=== PATIENT | male | born 1960 | race Caucasian/White ===

== ENCOUNTER 2017-07-28 11:41 | Inpatient (IN) | payer OTHER ==
[2017-07-28 11:46] VITALS: O2SAT 99
[2017-07-28] MEDS ORDERED: ceFAZolin 2 GM PREMIX 50 ML ONE (11:46)
[2017-07-28] MEDS ORDERED: ONDANSETRON HCL 4 MG/2 ML VIAL ONE (11:46)
[2017-07-28] MEDS ORDERED: MORPHINE SULFATE 8 MG/ML INJ ONE (11:46)
[2017-07-28 12:06] LABS: AUTOMATED NEUTROPHIL # 4.5 TH/MM3 (1.8-7.7); BASOPHIL % 0.3 % (0.0-2.0); EOSINOPHIL # 0.2 TH/MM3 (0-0.4); EOSINOPHIL % 2.5 % (0.0-4.0); HEMATOCRIT 47.7 % (39.0-51.0); HEMO FLAGS DIFF FINAL; LYMPH % 31.5 % (9.0-44.0); LYMPHOCYTE # 2.5 TH/MM3 (1.0-4.8); MEAN CELL VOLUME 86.5 FL (80.0-100.0); MEAN CORPUSCULAR HEMOGLOBIN 29.2 PG (27.0-34.0); MEAN CORPUSCULAR HGB CONC 33.8 % (32.0-36.0); MONO % 8.7 % (0.0-8.0); PLATELET COUNT 234 TH/MM3 (150-450); RED BLOOD COUNT 5.51 MIL/MM3 (4.50-5.90); RED CELL DISTRIBUTION WIDTH 13.5 % (11.6-17.2); WHITE BLOOD COUNT 7.9 TH/MM3 (4.0-11.0)
[2017-07-28 12:10] LABS: I-STAT POTASSIUM 3.9 MMOL/L (3.5-4.9)
[2017-07-28] MEDS ORDERED: IOHEXOL 350 MG/ML 10 ML VIAL (for RAD DIAG) IV PUSH ONE (12:11)
[2017-07-28 12:12] LABS: APTT (PATIENT) 23.5 SEC (24.3-30.1); INTERNATIONAL NORMALIZED RATIO 1.1 RATIO; PROTHROMBIN TIME - PATIENT 11.7 SEC (9.8-11.6)
--- NOTE | 2017-07-28 12:12 | RADRPT ---
EXAM DATE/TIME: 07/28/2017 11:36 [facility] COMPARISON: No previous studies available for comparison. INDICATIONS : Trauma alert. Chest pain. MEDICAL HISTORY : None. SURGICAL HISTORY : None. ENCOUNTER: Initial ACUITY: 1 day PAIN SCORE: Non-responsive. LOCATION: chest FINDINGS: Portable AP view of the chest demonstrates cardiac silhouette size that is at the upper limits for no rmal. No effusion, consolidation, or pneumothorax is visualized. The bones and soft tissues demonstra te no acute abnormality. CONCLUSION: Cardiac silhouette size is at the upper limits for normal. Otherwise, no acute finding is visualized. Alek Glass MD on July 28, 2017 at 12:09 Board Certified Radiologist. This report was verified electronically.
--- NOTE | 2017-07-28 12:12 | RADRPT ---
EXAM DATE/TIME: 07/28/2017 11:36 [facility] COMPARISON: No previous studies available for comparison. INDICATIONS : Trauma alert. MEDICAL HISTORY : None. SURGICAL HISTORY : None. ENCOUNTER: Initial ACUITY: 1 day PAIN SCORE: Non-responsive. LOCATION: Pelvis FINDINGS: Single AP view of the pelvis demonstrates no fracture or dislocation. Mineralization is within normal limits. There is no significant arthropathy. No soft tissue abnormality or radiopaque foreign body i s identified. 3 coins overlie the left proximal femur. CONCLUSION: No acute abnormality is identified. Alek Glass MD on July 28, 2017 at 12:10 Board Certified Radiologist. This report was verified electronically.
--- NOTE | 2017-07-28 12:15 | PD ---
HPI Chief Complaint: fell off a roof Time Seen by Provider: 11:43 Travel History International Travel<30 days: No Contact w/Intl Traveler<30days: No History of Present Illness HPI Patient is a 57-year-old male who presents to emergency room as a trauma alert. Patient reports that he was working on a roof today, reports that he took a step and did not notice the roof was unstable, reports that he fell 10-15 ft off the house and landed head first into a pile of wood. Patient reports that he is not on any anticoagulants. Patient denies any loss of consciousness. Patient was able to walk to the firehouse to obtain help. he reports that he has remote history of hypertension, he does not take any medications for hypertension. Patient with only complaint of headache as well as left-sided rib pain with associated shortness of breath PFSH Past Medical History Hypertension: Yes Past Surgical History Surgical History: No Previous Surgery Social History Alcohol Use: No Tobacco Use: No Substance Use: No Allergies-Medications (Allergen,Severity, Reaction): Coded Allergies: No Known Allergies (Unverified , 07/28/17) Reported Meds & Prescriptions Reported Meds & Active Scripts Active Percocet (Oxycodone-Acetaminophen) 5-325 mg Tab 1 Tab PO Q4H PRN Review of Systems General / Constitutional: No: Fever Eyes: No: Visual changes HENT: Positive: Headaches Cardiovascular: Positive: Chest Pain or Discomfort Respiratory: Positive: Shortness of Breath Gastrointestinal: No: Abdominal Pain Genitourinary: No: Dysuria Musculoskeletal: No: Pain Skin: No Rash Neurologic: No: Weakness Psychiatric: No: Depression Endocrine: No: Polydipsia Hematologic/Lymphatic: No: Easy Bruising Physical Exam Narrative GENERAL: moderate distress SKIN: Focused skin assessment warm/dry. Patient with skin avulsion/laceration to forehead HEAD: Atraumatic. Normocephalic. EYES: Pupils equal and round. No scleral icterus. No injection or drainage. ENT: No nasal bleeding or discharge. Mucous membranes pink and moist. NECK: Trachea midline. No JVD. CARDIOVASCULAR: Regular rate and rhythm. No murmur appreciated. RESPIRATORY: No accessory muscle use. Clear to auscultation. Breath sounds equal bilaterally. Patient with left sided rib pain GASTROINTESTINAL: Abdomen soft, non-tender, nondistended. Hepatic and splenic margins not palpable. MUSCULOSKELETAL: No obvious deformities. No clubbing. No cyanosis. No edema. NEUROLOGICAL: Awake and alert. No obvious cranial nerve deficits. Motor grossly within normal limits. Normal speech. PSYCHIATRIC: Appropriate mood and affect; insight and judgment normal. Data Data Last Documented VS Vital Signs Date Time Temp Pulse Resp B/P (MAP) Pulse Ox O2 Delivery O2 Flow Rate FiO2 07/28/17 12:25 60 18 156/86 (109) 99 Room Air Orders Orders Ed Poc Ultrasound (07/28/17 ) Morphine Inj (Morphine Inj) (07/28/17 11:46) Cefazolin 2 Gm Premix (Ancef 2 Gm Premix (07/28/17 11:46) Ondansetron Inj (Zofran Inj) (07/28/17 11:46) I-Stat Profile (07/28/17 11:44) I-Stat Creatinine (07/28/17 11:44) Complete Blood Count With Diff (07/28/17 11:44) Prothrombin Time / Inr (Pt) (07/28/17 11:44) Act Partial Throm Time (Ptt) (07/28/17 11:44) Type And Screen (07/28/17 11:44) Chest, Single Ap (07/28/17 11:44) Pelvis, Ap Only (Routine) (07/28/17 11:44) Ct Brain W/O Iv Contrast(Rout) (07/28/17 11:44) Ct Cerv Spine W/O Contrast (07/28/17 11:44) Ct Thorax/ Chest W Iv Contrast (07/28/17 11:44) Iv Access Insert/Monitor (07/28/17 11:44) Ecg Monitoring (07/28/17 11:44) Oximetry (07/28/17 11:44) Oxygen Administration (07/28/17 11:44) Iohexol 350 Inj (Omnipaque 350 Inj) (07/28/17 12:11) Wound Care (07/28/17 12:30) Lidocai-Epi 1%-1:100,000 Inj (Xylocaine- (07/28/17 12:30) Labs Laboratory Tests Test 07/28/17 11:45 White Blood Count 7.9 TH/MM3 Red Blood Count 5.51 MIL/MM3 Hemoglobin 16.1 GM/DL Bedside Hemoglobin 16.0 G/DL Hematocrit 47.7 % Bedside Hematocrit 47.0 % Mean Corpuscular Volume 86.5 FL Mean Corpuscular Hemoglobin 29.2 PG Mean Corpuscular Hemoglobin Concent 33.8 % Red Cell Distribution Width 13.5 % Platelet Count 234 TH/MM3 Mean Platelet Volume 7.2 FL Neutrophils (%) (Auto) 57.0 % Lymphocytes (%) (Auto) 31.5 % Monocytes (%) (Auto) 8.7 % Eosinophils (%) (Auto) 2.5 % Basophils (%) (Auto) 0.3 % Neutrophils # (Auto) 4.5 TH/MM3 Lymphocytes # (Auto) 2.5 TH/MM3 Monocytes # (Auto) 0.7 TH/MM3 Eosinophils # (Auto) 0.2 TH/MM3 Basophils # (Auto) 0.0 TH/MM3 CBC Comment DIFF FINAL Differential Comment Prothrombin Time 11.7 SEC Prothromb Time International Ratio 1.1 RATIO Activated Partial Thromboplast Time 23.5 SEC Bedside Sodium 142 MMOL/L Bedside Potassium 3.9 MMOL/L Bedside Chloride 102 MMOL/L Bedside Blood Urea Nitrogen 13 MG/DL Bedside Creatinine 0.9 MG/DL Bedside Glucose 105 MG/DL [facility] Medical Screen Exam Complete: Yes Emergency Medical Condition: Yes Interpretation(s) Laboratory Tests Test 07/28/17 11:45 White Blood Count 7.9 TH/MM3 (4.0-11.0) Red Blood Count 5.51 MIL/MM3 (4.50-5.90) Hemoglobin 16.1 GM/DL (13.0-17.0) Bedside Hemoglobin 16.0 G/DL (12.0-17.0) Hematocrit 47.7 % (39.0-51.0) Bedside Hematocrit 47.0 % (38.0-51.0) Mean Corpuscular Volume 86.5 FL (80.0-100.0) Mean Corpuscular Hemoglobin 29.2 PG (27.0-34.0) Mean Corpuscular Hemoglobin Concent 33.8 % (32.0-36.0) Red Cell Distribution Width 13.5 % (11.6-17.2) Platelet Count 234 TH/MM3 (150-450) Mean Platelet Volume 7.2 FL (7.0-11.0) Neutrophils (%) (Auto) 57.0 % (16.0-70.0) Lymphocytes (%) (Auto) 31.5 % (9.0-44.0) Monocytes (%) (Auto) 8.7 % (0.0-8.0) Eosinophils (%) (Auto) 2.5 % (0.0-4.0) Basophils (%) (Auto) 0.3 % (0.0-2.0) Neutrophils # (Auto) 4.5 TH/MM3 (1.8-7.7) Lymphocytes # (Auto) 2.5 TH/MM3 (1.0-4.8) Monocytes # (Auto) 0.7 TH/MM3 (0-0.9) Eosinophils # (Auto) 0.2 TH/MM3 (0-0.4) Basophils # (Auto) 0.0 TH/MM3 (0-0.2) CBC Comment DIFF FINAL Differential Comment Prothrombin Time 11.7 SEC (9.8-11.6) Prothromb Time International Ratio 1.1 RATIO Activated Partial Thromboplast Time 23.5 SEC (24.3-30.1) Bedside Sodium 142 MMOL/L (138-146) Bedside Potassium 3.9 MMOL/L (3.5-4.9) Bedside Chloride 102 MMOL/L (98-109) Bedside Blood Urea Nitrogen 13 MG/DL (8-26) Bedside Creatinine 0.9 MG/DL (0.8-1.3) Bedside Glucose 105 MG/DL (60-95) Last Impressions Pelvis X-Ray 07/28/17 1144 Signed Impressions: Service Date/Time: Friday, July 28, 2017 11:36 - CONCLUSION: No acute abnormality is identified. Alek Glass MD Head CT 07/28/17 1144 Signed Impressions: Service Date/Time: Friday, July 28, 2017 11:52 - CONCLUSION: 1. No acute intracranial abnormality is identified. 2. Right frontal scalp soft tissue swelling at the high convexity with subcutaneous air suggesting laceration. Alek Glass MD Chest X-Ray 07/28/17 1144 Signed Impressions: Service Date/Time: Friday, July 28, 2017 11:36 - CONCLUSION: Cardiac silhouette size is at the upper limits for normal. Otherwise, no acute finding is visualized. Alek Glass MD Chest CT 07/28/17 1144 Signed Impressions: Service Date/Time: Friday, July 28, 2017 12:03 - CONCLUSION: 1. There are fractures involving the left fourth, fifth, and seventh ribs. There is no pneumothorax or pulmonary contusion. No other acute finding is identified within the chest. 2. Coronary artery calcification. Alek Glass MD Cervical Spine CT 07/28/17 1144 Signed Impressions: Service Date/Time: Friday, July 28, 2017 11:55 - CONCLUSION: Degenerative disc disease at C3-C4 through C6-C7. However, no acute cervical spine abnormality is identified. Alek Glass MD Differential Diagnosis Differential includes ICH, cervical spine fracture, pneumothorax, rib fractures Narrative Course Patient is a 57-year-old male who presents to emergency room as a trauma alert. He only fell off a roof that was 10-15 feet in the air landing onto his left chest and head. NO LOC. Patient currently is not on any anticoagulants at this time. Please see trauma records for full trauma workup. Vital Signs Date Time Temp Pulse Resp B/P (MAP) Pulse Ox O2 Delivery O2 Flow Rate FiO2 07/28/17 12:25 60 18 156/86 (109) 99 Room Air Last Impressions Pelvis X-Ray 07/28/171143 Signed Impressions: Service Date/Time: Friday, July 28, 2017 11:36 - CONCLUSION: No acute abnormality is identified. Alek Glass MD Head CT 07/28/17 1144 Signed Impressions: Service Date/Time: Friday, July 28, 2017 11:52 - CONCLUSION: 1. No acute intracranial abnormality is identified. 2. Right frontal scalp soft tissue swelling at the high convexity with subcutaneous air suggesting laceration. Alek Glass MD Chest X-Ray 07/28/17 1144 Signed Impressions: Service Date/Time: Friday, July 28, 2017 11:36 - CONCLUSION: Cardiac silhouette size is at the upper limits for normal. Otherwise, no acute finding is visualized. Alek Glass MD Chest CT 07/28/17 1144 Signed Impressions: Service Date/Time: Friday, July 28, 2017 12:03 - CONCLUSION: 1. There are fractures involving the left fourth, fifth, and seventh ribs. There is no pneumothorax or pulmonary contusion. No other acute finding is identified within the chest. 2. Coronary artery calcification. Alek Glass MD Cervical Spine CT 07/28/17 1144 Signed Impressions: Service Date/Time: Friday, July 28, 2017 11:55 - CONCLUSION: Degenerative disc disease at C3-C4 through C6-C7. However, no acute cervical spine abnormality is identified. Alek Glass MD Patient acute fracture so left fourth fifth, sixth ribs. Patient offered admission to the hospital for observation, patient refuses admission as he reports that he has too much to do at work. Dr. Soto did see patient during trauma alert, patient can follow up with Dr. Soto in the office. Signs and symptoms of when to return to the ER was reviewed with patient in detail. Patient was given a copy of all his studies at discharge Patient unable to ambulate without assist at this time, patient now agreeable to observation in the hospital Diagnosis Diagnosis: Primary Impression: Ribs, multiple fractures Qualified Codes: S22.42XA - Multiple fractures of ribs, left side, initial encounter for closed fracture Additional Impressions: Trauma Facial laceration Referrals: Genet Bryant MD Patient Instructions: General Instructions, Narcotic given in the ED Additional Instructions: Please follow up with your primary care doctor as soon as possible, bring your radiology reports to your doctor's office for follow up Return to ER as needed Return to ER if symptoms worsen or progress Please follow up with Dr. Bryant in the office Suture removal in 7 days, keep area clean and dry Med/Other Pt SpecificInfo: Prescription(s) given Scripts Oxycodone-Acetaminophen (Percocet) 5-325 mg Tab 1 TAB PO Q4H Y for PAIN, #20 TAB 0 Refills Prov: Bella Velásquez DO 07/28/17 Disposition: 01 DISCHARGE HOME Condition: Stable Bella Velásquez DO Jul 28, 2017 12:15
--- NOTE | 2017-07-28 12:15 | RADRPT ---
EXAM DATE/TIME: 07/28/2017 11:52 [facility] COMPARISON: No previous studies available for comparison. INDICATIONS : Trauma alert; fall off roof. RADIATION DOSE: 69.15 CTDIvol (mGy) MEDICAL HISTORY : Non-responsive. SURGICAL HISTORY : Non-responsive. ENCOUNTER: Initial ACUITY: 1 day PAIN SCALE: 5/10 LOCATION: cranial TECHNIQUE: Multiple contiguous axial images were obtained of the head. Using automated exposure control and adj ustment of the mA and/or kV according to patient size, radiation dose was kept as low as reasonably a chievable to obtain optimal diagnostic quality images. DICOM format image data is available electro nically for review and comparison. FINDINGS: CEREBRUM: The ventricles are normal. No evidence of midline shift, mass lesion, hemorrhage or acute infarction . No extra-axial fluid collections are seen. POSTERIOR FOSSA: The cerebellum and brainstem demonstrate no acute finding. The 4th ventricle is midline. The cerebe llopontine angle is unremarkable. EXTRACRANIAL: There is right frontal scalp soft tissue swelling at the high convexity with associated subcutaneous air. SKULL: No skull fracture is visualized. There is lucency through the left lateral orbital wall but appears w ell-corticated indicating that it is not an acute fracture. CONCLUSION: 1. No acute intracranial abnormality is identified. 2. Right frontal scalp soft tissue swelling at the high convexity with subcutaneous air suggesting la ceration. Alek Glass MD on July 28, 2017 at 12:11 Board Certified Radiologist. This report was verified electronically.
--- NOTE | 2017-07-28 12:22 | RADRPT ---
EXAM DATE/TIME: 07/28/2017 11:55 [facility] COMPARISON: No previous studies available for comparison. INDICATIONS : Trauma alert; fall off roof. RADIATION DOSE: 43.61 CTDIvol (mGy) MEDICAL HISTORY : Non-responsive. SURGICAL HISTORY : Non-responsive. ENCOUNTER: Initial ACUITY: 1 day PAIN SCALE: 5/10 LOCATION: Bilateral chest TECHNIQUE: Volumetric scanning of the cervical spine was performed. Multiplanar reconstructions in the sagittal, coronal and oblique axial planes were performed. Using automated exposure control and adjustment o f the mA and/or kV according to patient size, radiation dose was kept as low as reasonably achievable to obtain optimal diagnostic quality images. DICOM format image data is available electronically f or review and comparison. FINDINGS: There is normal sagittal spine alignment of the cervical spine. No anterolisthesis or retrolisthesis is present. The atlantoaxial relationship is within normal limits. There is no prevertebral soft tiss ue swelling present. No fracture or dislocation is identified. There is degenerative disc disease at C3-C4 through C6-C7. The visualized portions of the posterior fossa, paraspinous soft tissues, and upper lung zones demons trate no acute abnormality. CONCLUSION: Degenerative disc disease at C3-C4 through C6-C7. However, no acute cervical spine abnormality is monika ntified. Alek Glass MD on July 28, 2017 at 12:15 Board Certified Radiologist. This report was verified electronically.
[2017-07-28 12:25] VITALS: BP 156/86; PULSE 60; RESP 18; O2SAT 99
--- NOTE | 2017-07-28 12:29 | RADRPT ---
EXAM DATE/TIME: 07/28/2017 12:03 [facility] COMPARISON: No previous studies available for comparison. INDICATIONS : Trauma alert; fall off roof. IV CONTRAST: 100 cc Omnipaque 350 (iohexol) IV RADIATION DOSE: 13.86 CTDIvol (mGy) MEDICAL HISTORY : Non-responsive. SURGICAL HISTORY : Non-responsive. ENCOUNTER: Initial ACUITY: 1 day PAIN SCALE: 5/10 LOCATION: Bilateral chest TECHNIQUE: Volumetric scanning of the chest was performed. Using automated exposure control and adjustment of t he mA and/or kV according to patient size, radiation dose was kept as low as reasonably achievable to obtain optimal diagnostic quality images. DICOM format image data is available electronically for review and comparison. Follow-up recommendations for detected pulmonary nodules are based at a minimum on nodule size and pa tient risk factors according to Fleischner Society Guidelines. FINDINGS: LUNGS: There is no consolidation or pneumothorax. There is no pulmonary contusion. PLEURA: There is no pleural thickening or pleural effusion. MEDIASTINUM: The heart and great vessels demonstrate no acute abnormality. Coronary artery calcification is presen t. There is no mediastinal or hilar lymphadenopathy. AXILLAE: Within normal limits. No lymphadenopathy. SKELETAL: There are minimally displaced fractures involving the left fourth, fifth, and seventh ribs. No other fracture is visualized. MISCELLANEOUS: The visualized upper abdominal organs demonstrate no acute abnormality. CONCLUSION: 1. There are fractures involving the left fourth, fifth, and seventh ribs. There is no pneumothorax o r pulmonary contusion. No other acute finding is identified within the chest. 2. Coronary artery calcification. Alek Glass MD on July 28, 2017 at 12:23 Board Certified Radiologist. This report was verified electronically.
[2017-07-28] MEDS ORDERED: LIDOCAINE 1%/EPINEPHrine 1:100,000 SOLN 20 ML VIAL INFIL ONE (12:30)
--- NOTE | 2017-07-28 12:37 | MH ---
cc: [facility] DATE OF ADMISSION: 07/28/2017 PHYSICIAN: Dr. Bryant trauma surgery REASON FOR ADMISSION His fall on top of the head. HISTORY OF PRESENT ILLNESS: This 42ish year-old male was working on the roof, fell down apparently head first did not lose consciousness was brought in as priority one trauma alert complaining of pain is right side of the head left side of the chest. The patient is awake, alert and oriented on spinal board with C-collar in place. PHYSICAL EXAMINATION: The physical examination reveals a pleasant 42ish year old male, normocephalic, trauma to the head consisting of a laceration, abrasion of the right frontal temporal area with minimal bleeding. Appearance unseen level more, pupils equally reactive. Extraocular muscles intact. No hemotympanum. No Simon's sign or raccoon's eyes. No signs of trauma to the face. NECK: The patient has a C-collar neck is examined by removing the C-collar and there is no signs of trauma to the neck. The patient is not tender. CHEST: Bilateral breath sounds. HEART: Regular rhythm. LUNGS: The patient is somewhat tender on palpation the left mid chest. Hemodynamically stable. No sign of pneumothorax or collapse or other injuries. The patient may have a fractured rib or just a bad contusion. ABDOMEN: The abdomen is soft, Active bowel sounds. No rebound or guarding. No masses. No signs of trauma to the abdomen. GENITOURINARY: Pelvis is stable. EXTREMITIES: The patient has normal, femoral, popliteal, dorsalis pedis posterior tibial pulses normal brachial radial ulnar pulses logrolling the patient reveals back to be normal. No signs of trauma to the back. NEUROLOGICALLY: The patient is stable. Glo coma scale is 15. He is awake, alert, motoric fully intact. Normal reflexes. No pathologic reflexes. IMPRESSION 42 elian -year-old male fell off the roof and sustained significant injury to soft tissues of the head. The patient will undergo a full workup and based on this the patient will be either admitted or discharge on his own. Genet MUNGUIA/christiane /11:59 AM /12:26 PM
--- NOTE | 2017-07-28 13:23 | PD ---
Physical Exam Date Seen by Provider: Jul 28, 2017 Time Seen by Provider: 13:21 Narrative Trauma alert to presents to the ED for evaluation of trauma. I was asked by my attending to repair a laceration to the forehead. Please refer to her note. Data Data Orders Orders Ed Poc Ultrasound (07/28/17 ) Morphine Inj (Morphine Inj) (07/28/17 11:46) Cefazolin 2 Gm Premix (Ancef 2 Gm Premix (07/28/17 11:46) Ondansetron Inj (Zofran Inj) (07/28/17 11:46) I-Stat Profile (07/28/17 11:44) I-Stat Creatinine (07/28/17 11:44) Complete Blood Count With Diff (07/28/17 11:44) Prothrombin Time / Inr (Pt) (07/28/17 11:44) Act Partial Throm Time (Ptt) (07/28/17 11:44) Type And Screen (07/28/17 11:44) Chest, Single Ap (07/28/17 11:44) Pelvis, Ap Only (Routine) (07/28/17 11:44) Ct Brain W/O Iv Contrast(Rout) (07/28/17 11:44) Ct Cerv Spine W/O Contrast (07/28/17 11:44) Ct Thorax/ Chest W Iv Contrast (07/28/17 11:44) Iv Access Insert/Monitor (07/28/17 11:44) Ecg Monitoring (07/28/17 11:44) Oximetry (07/28/17 11:44) Oxygen Administration (07/28/17 11:44) Iohexol 350 Inj (Omnipaque 350 Inj) (07/28/17 12:11) Wound Care (07/28/17 12:30) Lidocai-Epi 1%-1:100,000 Inj (Xylocaine- (07/28/17 12:30) Admit Order (Ed Use Only) (07/28/17 12:51) Labs Laboratory Tests Test 07/28/17 11:45 White Blood Count 7.9 TH/MM3 Red Blood Count 5.51 MIL/MM3 Hemoglobin 16.1 GM/DL Bedside Hemoglobin 16.0 G/DL Hematocrit 47.7 % Bedside Hematocrit 47.0 % Mean Corpuscular Volume 86.5 FL Mean Corpuscular Hemoglobin 29.2 PG Mean Corpuscular Hemoglobin Concent 33.8 % Red Cell Distribution Width 13.5 % Platelet Count 234 TH/MM3 Mean Platelet Volume 7.2 FL Neutrophils (%) (Auto) 57.0 % Lymphocytes (%) (Auto) 31.5 % Monocytes (%) (Auto) 8.7 % Eosinophils (%) (Auto) 2.5 % Basophils (%) (Auto) 0.3 % Neutrophils # (Auto) 4.5 TH/MM3 Lymphocytes # (Auto) 2.5 TH/MM3 Monocytes # (Auto) 0.7 TH/MM3 Eosinophils # (Auto) 0.2 TH/MM3 Basophils # (Auto) 0.0 TH/MM3 CBC Comment DIFF FINAL Differential Comment Prothrombin Time 11.7 SEC Prothromb Time International Ratio 1.1 RATIO Activated Partial Thromboplast Time 23.5 SEC Bedside Sodium 142 MMOL/L Bedside Potassium 3.9 MMOL/L Bedside Chloride 102 MMOL/L Bedside Blood Urea Nitrogen 13 MG/DL Bedside Creatinine 0.9 MG/DL Bedside Glucose 105 MG/DL [facility] Medical Record Reviewed: Yes Supervised Visit with VINAYAK: No Procedures Procedure Narrative LACERATION LOCATION: right forehead LENGTH: 7 cm with skin avulsion (of about 5 cm) NUMBER OF STITCHES/KONSTANTIN: 23 sutures REPAIR: The area of the laceration was prepped with Betadine and sterilely draped. The laceration was infiltrated with 1% Xylocaine. The wound was copiously irrigated and explored without evidence of foreign body, tendon injury or neurovascular injury. The wound was closed using 5-0 Prolene. This was a 1 layer repair. A sterile dressing was applied. The patient was advised to keep the dressing clean and dry. Patient tolerated the procedure well. Diagnosis Primary Impression: Ribs, multiple fractures Qualified Codes: S22.42XA - Multiple fractures of ribs, left side, initial encounter for closed fracture Additional Impression: Trauma Carlos Capellan Jul 28, 2017 13:23
[2017-07-28] MEDS ORDERED: PERC5TAB12 PO (13:54)
[2017-07-28] MEDS ORDERED: LORazepam 2 MG/ML VIAL IV PUSH ONE (14:00)
[2017-07-28 14:58] VITALS: BP 125/68; PULSE 60; RESP 18; O2SAT 98
[2017-07-28] MEDS ORDERED: ONDANSETRON HCL 4 MG/2 ML VIAL IV PRN ×2 (15:00→16:45)
[2017-07-28] MEDS ORDERED: MORPHINE SULFATE 4 MG/ML INJ IV PUSH ONE (15:00)
[2017-07-28] MEDS ORDERED: ACETAMINOPHEN 325 MG TAB PO PRN (15:00)
[2017-07-28] MEDS ORDERED: MORPHINE SULFATE 4 MG/ML INJ IV PUSH PRN (15:00)
[2017-07-28 15:38] VITALS: BP 125/68; PULSE 78; RESP 18; O2SAT 96
[2017-07-28] MEDS ORDERED: oxyCODONE/ACETAMINOPHEN 5 MG/325 MG TAB PO PRN (16:45)
[2017-07-28] MEDS ORDERED: RESP: ALBUTEROL 2.5 MG/IPRATROPIUM 0.5 MG NEB (PRN) INH (16:45)
[2017-07-28] MEDS ORDERED: SODIUM CHLORIDE 0.9% FLUSH 10 ML FLUSH IV FLUSH PRN (16:45)
[2017-07-28] MEDS: METHOCARBAMOL 500 MG TAB PO SCH ×2 (16:45→22:10)
[2017-07-28] MEDS ORDERED: ENALAPRILAT 1.25 MG/ML VIAL IV PRN (16:45)
[2017-07-28] MEDS ORDERED: BACITRACIN TOP OINT 15 GM TUBE TOPICAL PRN (20:00)
[2017-07-28 20:40] VITALS: BP 172/92; PULSE 86; RESP 17; TEMP 98.4; O2SAT 98
[2017-07-28] MEDS ORDERED: MAGNESIUM HYDROXIDE SUSP 30 ML CUP PO SCH (21:00)
[2017-07-28] MEDS: DOCUSATE SODIUM 50 MG/SENNA 8.6 MG TAB PO SCH (21:54)
[2017-07-28] MEDS: FAMOTIDINE 20 MG TAB PO SCH (21:54)
[2017-07-28] MEDS: RESP: ALBUTEROL 2.5 MG/IPRATROPIUM 0.5 MG NEB (SCH) INH (22:00)
[2017-07-28] MEDS: oxyCODONE/ACETAMINOPHEN 10 MG/325 MG TAB PO PRN (23:03)
[2017-07-29 00:45] VITALS: BP 167/87; PULSE 65; RESP 17; TEMP 97.5; O2SAT 96
[2017-07-29] MEDS: RESP: ALBUTEROL 2.5 MG/IPRATROPIUM 0.5 MG NEB (SCH) INH ×3 (03:52→15:45)
[2017-07-29 04:35] VITALS: BP 148/84; PULSE 60; RESP 17; TEMP 97; O2SAT 99
--- NOTE | 2017-07-29 05:29 | RADRPT ---
EXAM DATE/TIME: 07/29/2017 04:12 [facility] COMPARISON: CT THORAX W CONTRAST, July 28, 2017, 12:03. CHEST SINGLE AP, July 28, 2017, 11:36. INDICATIONS : Evaluate left side rib fractures MEDICAL HISTORY : Unobtainable SURGICAL HISTORY : Unobtainable ENCOUNTER: Subsequent ACUITY: 3 days PAIN SCORE: 7/10 LOCATION: Bilateral chest FINDINGS: No evidence of pneumothorax. Mild pleural thickening upper lateral left chest at the site of multipl e nondisplaced rib fractures. There is a new infiltrate in the lower lateral left lung causing loss of delineation of portions of the left heart border. There is also loss of delineation of portion of the medial left hemidiaphragm suggesting multifocal areas of consolidation. The right lung is clear . The heart is normal size. CONCLUSION: Interval development of patchy consolidative infiltrates in the left lower lung. Jamel Castaneda MD on July 29, 2017 at 5:24 Board Certified Radiologist. This report was verified electronically.
[2017-07-29 05:43] LABS: AUTOMATED NEUTROPHIL # 5.8 TH/MM3 (1.8-7.7); EOSINOPHIL # 0.1 TH/MM3 (0-0.4); EOSINOPHIL % 1.4 % (0.0-4.0); HEMATOCRIT 42.7 % (39.0-51.0); HEMO FLAGS DIFF FINAL; LYMPH % 21.1 % (9.0-44.0); LYMPHOCYTE # 1.8 TH/MM3 (1.0-4.8); MEAN CORPUSCULAR HEMOGLOBIN 29.3 PG (27.0-34.0); MEAN CORPUSCULAR HGB CONC 33.6 % (32.0-36.0); MONO % 9.3 % (0.0-8.0); NEUT % 68.2 % (16.0-70.0); PLATELET COUNT 175 TH/MM3 (150-450); RED BLOOD COUNT 4.91 MIL/MM3 (4.50-5.90); RED CELL DISTRIBUTION WIDTH 13.3 % (11.6-17.2); WHITE BLOOD COUNT 8.5 TH/MM3 (4.0-11.0)
[2017-07-29 05:57] LABS: ALT (GPT) 39 U/L (12-78); ANION GAP 7 MEQ/L (5-15); AST (GOT) 20 U/L (15-37); BICARBONATE 25.1 MEQ/L (21.0-32.0); BLOOD UREA NITROGEN 11 MG/DL (7-18); CHLORIDE 104 MEQ/L (98-107); GLOMERULAR FILTRATION RATE 77 ML/MIN (>89); POTASSIUM 3.8 MEQ/L (3.5-5.1); SODIUM (NA) 136 MEQ/L (136-145)
[2017-07-29 05:59] LABS: ALKALINE PHOSPHATASE 73 U/L (45-117); TOTAL BILIRUBIN ADULT 0.9 MG/DL (0.2-1.0)
[2017-07-29] MEDS: METHOCARBAMOL 500 MG TAB PO SCH (06:07)
[2017-07-29 08:00] VITALS: BP 153/97; PULSE 75; RESP 18; TEMP 99.2; O2SAT 96
[2017-07-29] MEDS: FAMOTIDINE 20 MG TAB PO SCH (08:43)
[2017-07-29] MEDS: DOCUSATE SODIUM 50 MG/SENNA 8.6 MG TAB PO SCH (08:43)
[2017-07-29] MEDS ORDERED: LIDOCAINE HCL 5% PATCH T-DERMAL SCH (09:00)
[2017-07-29 09:18] VITALS: O2SAT 97
[2017-07-29] MEDS ORDERED: SENN1TAB PO (10:32)
[2017-07-29] MEDS ORDERED: METH500T3 PO (10:32)
[2017-07-29] MEDS ORDERED: OXYC1TAB63 PO (10:32)
[2017-07-29] MEDS ORDERED: MAGN400S PO (10:32)
--- NOTE | 2017-07-29 10:43 | HHI.DS ---
Discharge Summary Admission Date Jul 28, 2017 at 14:58 Discharge Date: Jul 29, 2017 Admitting Diagnosis Trauma, multiple rib fractures (1) Trauma ICD Codes: T14.90 - Injury, unspecified Diagnosis: Principal Status: Acute (2) Facial laceration ICD Codes: S01.81XA - Laceration without foreign body of other part of head, initial encounter Diagnosis: Principal Status: Acute (3) Ribs, multiple fractures ICD Codes: S22.49XA - Multiple fractures of ribs, unspecified side, initial encounter for closed fracture Diagnosis: Principal Status: Acute Brief History Fall. CBC/BMP: 07/29/17 0502 07/29/17 0502 Significant Findings Laboratory Tests Test 07/28/17 11:45 07/29/17 05:02 Monocytes (%) (Auto) 8.7 % (0.0-8.0) 9.3 % (0.0-8.0) Prothrombin Time 11.7 SEC (9.8-11.6) Activated Partial Thromboplast Time 23.5 SEC (24.3-30.1) Bedside Glucose 105 MG/DL (60-95) Calcium Level 8.1 MG/DL (8.5-10.1) Estimat Glomerular Filtration Rate 77 ML/MIN (>89) Imaging Last Impressions Chest X-Ray 07/29/17 0600 Signed Impressions: Service Date/Time: Saturday, July 29, 2017 04:12 - CONCLUSION: Interval development of patchy consolidative infiltrates in the left lower lung. Jamel Castaneda MD Pelvis X-Ray 07/28/17 1144 Signed Impressions: Service Date/Time: Friday, July 28, 2017 11:36 - CONCLUSION: No acute abnormality is identified. Alek Glass MD Head CT 07/28/17 1144 Signed Impressions: Service Date/Time: Friday, July 28, 2017 11:52 - CONCLUSION: 1. No acute intracranial abnormality is identified. 2. Right frontal scalp soft tissue swelling at the high convexity with subcutaneous air suggesting laceration. Alek Glass MD Chest CT 07/28/17 1144 Signed Impressions: Service Date/Time: Friday, July 28, 2017 12:03 - CONCLUSION: 1. There are fractures involving the left fourth, fifth, and seventh ribs. There is no pneumothorax or pulmonary contusion. No other acute finding is identified within the chest. 2. Coronary artery calcification. Alek Glass MD Cervical Spine CT 07/28/17 1144 Signed Impressions: Service Date/Time: Friday, July 28, 2017 11:55 - CONCLUSION: Degenerative disc disease at C3-C4 through C6-C7. However, no acute cervical spine abnormality is identified. Alek Glass MD PE at Discharge GENERAL: This is a 57-year-old male lying in bed. No distress noted. Pleasant and cooperative. SKIN: Warm and dry. HEAD: Normocephalic. Right for head laceration noted with sutures in place. [employer]. EYES: PERRLA ENT: No nasal bleeding or discharge. Mucous membranes pink and moist. NECK: Trachea midline. No JVD. CARDIOVASCULAR: Regular rate and rhythm. RESPIRATORY: No accessory muscle use. Lungs are clear to auscultation. Breath sounds equal bilaterally. No distress or dyspnea. GASTROINTESTINAL: BS + x 4 quads. Abdomen soft, non-tender, nondistended. MUSCULOSKELETAL: Extremities without cyanosis, or edema. + peripheral pulses x 4 extremities. Warm with good capillary refill and sensation. MAEW. NEUROLOGICAL: Awake and alert. Normal speech and pattern. Hospital Course [place]: This is a 57-year-old male who sustained a fall. He fell approximately 10-15 feet off of the roof. He landed headfirst into a pile of wood. He was able to ambulate after the fall to the fire house for help. INJURIES: RIGHT scalp lac (23 sutures) LEFT rib fx (4,5,7) No PTX. PMHx: HTN (no meds) Procedures: Consults: Case management. Diet: Regular Pulm: IS, acapella, EZpap. Nebs. Pain: Percocet 5-10 mg q 4h. Morphine 4 mg q 4h. Robaxin 500 mg q 8h. Lidoderm patch. Activity: OOB. PT ordered. GI: Pepcid BID Bowel: Izabella-colace BID. MOM. LBM: 0 DVT: SCD's Patient wants to go home. The patient is now tolerating a po diet. Eating and drinking well. Pain is being managed well with PO pain medications, and patient is being a provided with a script for pain meds upon discharge. (NO driving while taking narcotic pain medication enforced to patient.) We have recommended to patient to continue with stool softeners while taking narcotic pain medications to prevent constipation. Pt has been participating in PT while admitted at [facility] and has been ambulating with their assistance and independently . (Patient observed ambulating unassisted in the hallway) PT needs for home. All follow up appointments have been provided and discussed with the patient. It is recommended that the patient keeps all his follow up appointments for continued recovery. Returned to PCP for suture removal to right forehead and approximately 5-7 days. Therefore, the patient is stable to be safely discharged home from a trauma surgery standpoint. Thank you for allowing us to participate in his care. We wish [place] the best in his recovery. RIGHT scalp lac (23 sutures) Wash gently with soap and water. Pat dry Leave open to air Return to PCP for suture removal in 5-7 days LEFT rib fx (4,5,7) No PTX. Aggressive pulmonary toileting O2 as needed Pain management Chest x-rays as needed H&H stable PT ordered Ambulating OOB unassisted Pt Condition on Discharge: Stable Discharge Disposition: Discharge Home Discharge Instructions DIET: Follow Instructions for: As Tolerated, No Restrictions Activities you can perform: Regular-No Restrictions Activities to Avoid: Driving for 24 hrs, Concussion Sports, Contact Sports, Lifting/Bending, Strenuous Activity Other Activity Instructions: No driving while taking narcotic pain medications Justine Estrada Jul 29, 2017 10:43
[2017-07-29] MEDS: oxyCODONE/ACETAMINOPHEN 10 MG/325 MG TAB PO PRN (11:33)
[2017-07-29 12:02] VITALS: BP 133/69; PULSE 75; RESP 18; TEMP 98.1; O2SAT 99
[2017-07-29 12:33] VITALS: RESP 18
[2017-07-29] MEDS ORDERED: REMOVE OLD LIDOCAINE PATCH T-DERMAL SCH (21:00)
== END 2017-07-29 15:46 | disposition home or self-care (01) | DRG 605 ==
LOC: NEPI 11:41 → NEDA 12:53 → UNDOADMIN 12:53 → NEDA 14:58 → EDBD 14:58 → N06A 15:56
PROVIDERS: ADMIT Surgery; ATTEND Surgery
PROC: 0HQ0XZZ Repair Scalp Skin, External Approach (ICD-10-PCS; principal; 2017-07-28)
DX: S01.01XA Laceration without foreign body of scalp, initial encounter (principal); S22.42XA Multiple fractures of ribs, left side, initial encounter for closed fracture; W13.2XXA Fall from, out of or through roof, initial encounter; Y92.008 Other place in unspecified non-institutional (private) residence as the place of occurrence of the external cause
CPT/HCPCS: 12014; 70450; 71010; 71260; 72125; 72170; 80053; 82435; 82565; 82947; 84132; 84295; 84520; 85025; 85610; 85730; 86850; 86900; 86901; 90471; 94150; 94640; 94664; 94668; 96374; 96375; 99291; G0390; J0690; J2270; J2405; Q9967